=== PATIENT | male | born 1950 ===

== ENCOUNTER → 2021-03-10 | Outpatient (CLI) | payer MEDICARE, BC ==
[2021-03-10 15:57] LABS: HGB 14.8 g/dL (13.0-17.0); MCH 30.3 pg (27.0-32.0); MCHC 32.2 g/dL (32.0-37.0); MCV 94.1 fL (80.0-97.0); Mean Platelet Volume 10.4 fL (9.5-12.2); Platelet Count 230 X 10*3/uL (140-440); RBC 4.89 X 10*6/uL (4.40-5.60); RDW 13.2 % (11.5-14.5); WBC 5.39 X 10*3/uL (4.50-10.00)
[2021-03-10 17:02] LABS: African American GFR (CKD) 77.3 (60.0-200.0); Albumin 4.9 g/dL (3.80-4.90); Albumin/Globulin Ratio 2.58 (1.60-3.17); Anion Gap 7.1 mmol/L (4.00-12.00); BUN/Creat Ratio 19.09 Ratio (12.00-20.00); Calcium 9.8 mg/dL (8.7-10.3); Carbon Dioxide 25.9 mmol/L (21.6-31.8); Chol/HDL Ratio 2.67; Globulin 1.9 g/dL (1.6-3.3); LDL Cholesterol,Calculated 53.8 mg/dL (0.0-131.0); Non-African American GFR(CKD) 66.7 (60.0-200.0); Potassium 5.4 mmol/L (3.5-5.5); Total Bilirubin 0.6 mg/dL (0.2-1.2); Total Protein 6.8 g/dL (6.2-8.2); VLDL Calculation 21.2 mg/dL (5.00-40.00)
== END | disposition home or self-care (01) ==
LOC: LABWHC1 10:18
PROVIDERS: ATTEND Internal Medicine Clinical Cardiac Electrophysiology
DX: I25.10 Atherosclerotic heart disease of native coronary artery without angina pectoris (principal); E78.5 Hyperlipidemia, unspecified; Z95.1 Presence of aortocoronary bypass graft
CPT/HCPCS: 36415; 80053; 80061; 84443; 85027

== ENCOUNTER 2025-03-22 14:13 | Inpatient (IN) | payer BC, MEDICARE ==
[2025-03-22] MEDS: SODIUM CHLORIDE 0.9% 500 ML 500 ML IV STA (15:15)
[2025-03-22] MEDS: SODIUM CHLORIDE 0.9% 1,000 ML IV STA (15:15)
--- NOTE | 2025-03-22 15:17 | ED ---
General Adult HPI - General Chief complaint: Arrhythmia/Palpitations Stated complaint: SOB, Afib Time Seen by Provider: 03/22/25 14:13 Source: patient, RN notes reviewed, old records reviewed Mode of arrival: ambulatory Limitations: no limitations - History of Present Illness Initial comments: This is a 74-year-old male who presents to the emergency department stating he has a history of atrial fibrillation. Patient came in today because he felt like his heart was racing again. Patient states he was at [facility] a couple of days ago and was discharged home but since then his heart rate has been back up to 120 beats to 130 beats bpm. Patient denies any chest pain. Patient does state he is somewhat dizzy and is mildly short of breath. Patient denies any recent fever chills or cough. Patient states he has been taking his medications at an increased dose per [facility]. Patient is on Eliquis. - Related Data Home Medications Medication Instructions Recorded Confirmed Apixaban [Eliquis] 5 mg PO HS@1930 03/22/25 03/22/25 Atorvastatin [Lipitor] 40 mg PO Q2D@1930 03/22/25 03/22/25 Atorvastatin [Lipitor] 80 mg PO Q2D@1930 03/22/25 03/22/25 Ezetimibe [Zetia] 10 mg PO DAILY 03/22/25 03/22/25 Lisinopril-Hctz 20-12.5 mg 1 tab PO DAILY 03/22/25 03/22/25 [Zestoretic 20-12.5] Metoprolol Tartrate [Lopressor] 100 mg PO BID 03/22/25 03/22/25 Sertraline [Zoloft] 50 mg PO HS@1930 03/22/25 03/22/25 Allergies Allergy/AdvReac Type Severity Reaction Status Date / Time No Known Allergies Allergy Verified 03/22/25 17:06 Review of Systems ROS Statement: Those systems with pertinent positive or pertinent negative responses have been documented in the HPI. ROS Other: All systems not noted in ROS Statement are negative. Past Medical History Past Medical History: Atrial Fibrillation, Coronary Artery Disease (CAD), Chest Pain / Angina, Hyperlipidemia, Hypertension, Myocardial Infarction (MD), Osteoarthritis (OA), Prostate Disorder Last Myocardial Infarction Date:: june 2012 History of Any Multi-Drug Resistant Organisms: None Reported Past Surgical History: Coronary Bypass/CABG, Heart Catheterization, Heart Catheterization With Stent, Hernia Repair Past Anesthesia/Blood Transfusion Reactions: No Reported Reaction Date of Last Stent Placement:: june 2012 Past Psychological History: Anxiety Past Alcohol Use History: Occasional Past Drug Use History: None Reported - Past Family History Father Family Medical History: Cancer General Exam - General Exam Comments Initial Comments: GENERAL: Patient is well-developed and well-nourished. Patient is nontoxic and well- hydrated and is in mild distress. ENT: Neck is soft and supple. No significant lymphadenopathy is noted. Oropharynx is clear. Moist mucous membranes. Neck has full range of motion without eliciting any pain. EYES: The sclera were anicteric and conjunctiva were pink and moist. Extraocular movements were intact and pupils were equal round and reactive to light. Eyelids were unremarkable. PULMONARY: Unlabored respirations. Good breath sounds bilaterally. No audible rales rhonchi or wheezing was noted. CARDIOVASCULAR: Patient has an irregular heartbeat at 120 bpm ABDOMEN: Soft and nontender with normal bowel sounds. No palpable organomegaly was noted. There is no palpable pulsatile mass. SKIN: Skin is clear with no lesions or rashes and otherwise unremarkable. NEUROLOGIC: Patient is alert and oriented x3. Cranial nerves II through XII are grossly intact. Motor and sensory are also intact. Normal speech, volume and content. Symmetrical smile. MUSCULOSKELETAL: Normal extremities with adequate strength and full range of motion. No lower extremity swelling or edema. No calf tenderness. LYMPHATICS: No significant lymphadenopathy is noted PSYCHIATRIC: Normal psychiatric evaluation. Limitations: no limitations Course Vital Signs 03/22/25 03/22/25 03/22/25 14:19 15:13 16:25 Temperature 98.2 F Pulse Rate 124 H 121 H 125 H Respiratory 18 18 18 Rate Blood Pressure 110/75 105/67 116/87 O2 Sat by Pulse 100 95 96 Oximetry 03/22/25 03/22/25 16:43 17:38 Temperature Pulse Rate 125 H 108 H Respiratory 18 Rate Blood Pressure 113/77 O2 Sat by Pulse 95 Oximetry Medical Decision Making - Medical Decision Making EKG is interpreted by myself. EKG shows atrial fibrillation with rapid ventricular response at 120 bpm QRS 121 QT interval 344 QTc is 4-15. Patient's EKG shows no ST segment elevation or depression. Was pt. sent in by a medical professional or institution (Dr., PA, B[employer]SEMBLER, urgent care, hospital, or alf...) When possible be specific @ -[No] Did you speak to anyone other than the patient for history (EMS, parent, family, police, friend...)? What history was obtained from this source @ -[No] Did you review nursing and triage notes (agree or disagree)? Why? @ -[I reviewed and agree with nursing and triage notes] Were old charts reviewed (outside hosp., previous admission, EMS record, old E KG, old radiological studies, urgent care reports/EKG's, alf records)? Report findings @ -[No old charts were reviewed] Differential Diagnosis? @ -Differential Palpitations Ventricular arrhythmias, atrial arrhythmias, myocardial infarction, anemia, thyrotoxicosis, electrolyte imbalance, hypokalemia, pulmonary embolism, pulmonary disease, drugs, alcohol, anxiety, stress.... This is not meant to be an all-inclusive list. EKG interpreted by me (3pts min.). @ -[As above] X-rays interpreted by me (1pt min.). @ -Chest x-ray shows no acute abnormality CT interpreted by me (1pt min.). @ -[None done] U/S interpreted by me (1pt. min.). @ -[None done] What testing was considered but not performed or refused? (CT, X-rays, U/S, labs)? Why? @ -[None] What meds were considered but not given or refused? Why? @ -[None] Did you discuss the management of the patient with other professionals (pr ofessionals i.e. YUAN [place], B[employer]SEMBLER, lab, RT, psych nurse, clinical social worker, flatbed company driver, teacher, chief merchandising officer, comp field case manager)? Give summary @ -I spoke with Mary Imogene Bassett Hospitalist they agreed to admit the patient admitted the patient and wrote admitting orders Was smoking cessation discussed for >3mins.? @ -[No] Was critical care preformed (if so, how long)? @ -35 minutes Were there social determinants of health that impacted care today? How? (Homelessness, low income, unemployed, alcoholism, drug addiction, transportation, low edu. Level, literacy, decrease access to med. care, [facility], rehab)? @ -[No] Was there de-escalation of care discussed even if they declined (Discuss DNR or withdrawal of care, Hospice)? DNR status @ -[No] What co-morbidities impacted this encounter? (DM, HTN, Smoking, COPD, CAD, Cancer, CVA, ARF, Chemo, Hep., AIDS, mental health diagnosis, sleep apnea, morbid obesity)? @ -[None] Was patient admitted / discharged? Hospital course, mention meds given and route, prescriptions, significant lab abnormalities, going to OR and other pertinent info. @ -Patient was having heart rate up to the 130 beats a minute it was irregular and patient was in A-fib at this time so I started the patient on Cardizem patient received a bolus and then drip and it slowed the heart rate down to about 105 bpm prior to his admission. I spoke with the stomach and hospitalist agreed to admit the patient admit the patient I wrote a bitting orders and I consulted cardiology Undiagnosed new problem with uncertain prognosis? @ -[No] Drug Therapy requiring intensive monitoring for toxicity (Heparin, Nitro, Insulin, Cardizem)? @ -[No] Were any procedures done? @ -[No] Diagnosis/symptom? @ -A-fib with rapid ventricular response Acute, or Chronic, or Acute on Chronic? @ -Acute Uncomplicated (without systemic symptoms) or Complicated (systemic symptoms)? @ -[default] Side effects of treatment? @ -[No] Exacerbation, Progression, or Severe Exacerbation? @ -[No] Poses a threat to life or bodily function? How? (Chest pain, USA, MD, pneumonia, PE, COPD, DKA, ARF, appy, cholecystitis, CVA, Diverticulitis, Homicidal, Suicidal, threat to staff... and all critical care pts) @ -Yes this can lead to poor perfusion and endorgan dysfunction - Lab Data Result diagrams: 03/22/25 15:13 03/22/25 15:13 Lab Results 03/22/25 03/22/25 03/22/25 Range/Units 15:13 15:13 15:13 WBC 5.70 (4.50-10.00) 10*3/uL RBC 3.80 L (4.40-5.60) 10*6/uL Hgb 12.1 L (13.0-17.0) g/dL Hct 34.2 L (39.6-50.0) % MCV 90.0 (80.0-97.0) fL MCH 31.8 (27.0-32.0) pg MCHC 35.4 (32.0-37.0) g/dL Plt Count 207 (140-440) 10*3/uL MPV 9.7 (9.5-12.2) fL Immature Gran % (Auto) 0.2 % Neutrophils % 70.1 % Lymphocytes % 14.6 % Monocytes % 9.8 % Eosinophils % 4.4 % Basophils % 0.9 % Immature Gran # 0.01 (0.00-0.04) 10*3/uL Neutrophils # 4.00 (1.80-7.70) 10*3/uL Lymphocytes # 0.83 L (0.90-5.00) 10*3/uL Monocytes # 0.56 (0.20-1.00) 10*3/uL Eosinophils # 0.25 (0.04-0.35) 10*3/uL Basophils # 0.05 (0.00-0.10) 10*3/uL PT (10.0-12.5) sec INR (<1.2) APTT (22.0-30.0) sec Sodium 137 (137-145) mmol/L Potassium 3.4 L (3.5-5.1) mmol/L Chloride 101 (98-107) mmol/L Carbon Dioxide 28 (22-30) mmol/L Anion Gap 8 mmol/L BUN 18 (9-20) mg/dL Creatinine 0.92 (0.66-1.25) mg/dL Est GFR (CKD-EPI)AfAm >90 (>60 ml/min/1.73 sqM) Est GFR (CKD-EPI)NonAf 81 (>60 ml/min/1.73 sqM) Glucose 124 H (74-99) mg/dL Calcium 9.2 (8.4-10.2) mg/dL Magnesium 1.7 (1.6-2.3) mg/dL Total Bilirubin 0.6 (0.2-1.3) mg/dL AST 22 (17-59) U/L ALT 24 (4-49) U/L Alkaline Phosphatase 83 (38-126) U/L Troponin I <0.012 (0.000-0.034) ng/mL Total Protein 5.8 L (6.3-8.2) g/dL Albumin 3.8 (3.5-5.0) g/dL TSH 1.900 (0.465-4.680) mIU/L 03/22/25 Range/Units 15:50 WBC (4.50-10.00) 10*3/uL RBC (4.40-5.60) 10*6/uL Hgb (13.0-17.0) g/dL Hct (39.6-50.0) % MCV (80.0-97.0) fL MCH (27.0-32.0) pg MCHC (32.0-37.0) g/dL Plt Count (140-440) 10*3/uL MPV (9.5-12.2) fL Immature Gran % (Auto) % Neutrophils % % Lymphocytes % % Monocytes % % Eosinophils % % Basophils % % Immature Gran # (0.00-0.04) 10*3/uL Neutrophils # (1.80-7.70) 10*3/uL Lymphocytes # (0.90-5.00) 10*3/uL Monocytes # (0.20-1.00) 10*3/uL Eosinophils # (0.04-0.35) 10*3/uL Basophils # (0.00-0.10) 10*3/uL PT 11.0 (10.0-12.5) sec INR 1.0 (<1.2) APTT 23.4 (22.0-30.0) sec Sodium (137-145) mmol/L Potassium (3.5-5.1) mmol/L Chloride (98-107) mmol/L Carbon Dioxide (22-30) mmol/L Anion Gap mmol/L BUN (9-20) mg/dL Creatinine (0.66-1.25) mg/dL Est GFR (CKD-EPI)AfAm (>60 ml/min/1.73 sqM) Est GFR (CKD-EPI)NonAf (>60 ml/min/1.73 sqM) Glucose (74-99) mg/dL Calcium (8.4-10.2) mg/dL Magnesium (1.6-2.3) mg/dL Total Bilirubin (0.2-1.3) mg/dL AST (17-59) U/L ALT (4-49) U/L Alkaline Phosphatase (38-126) U/L Troponin I (0.000-0.034) ng/mL Total Protein (6.3-8.2) g/dL Albumin (3.5-5.0) g/dL TSH (0.465-4.680) mIU/L Disposition Clinical Impression: Atrial flutter with rapid ventricular response Disposition: ADMITTED IP TO THIS HOSP Referrals: Karlo Merlos MD [Primary Care Provider] - 1-2 days Time of Disposition: 17:54
[2025-03-22 15:18] LABS: Basophils # (A) 0.05 10*3/uL (0.00-0.10); Basophils % (A) 0.9 %; Eosinophils # (A) 0.25 10*3/uL (0.04-0.35); Eosinophils % (A) 4.4 %; HCT 34.2 % (39.6-50.0); HGB 12.1 g/dL (13.0-17.0); Lymphocytes # (A) 0.83 10*3/uL (0.90-5.00); Lymphocytes % (A) 14.6 %; MCH 31.8 pg (27.0-32.0); MCHC 35.4 g/dL (32.0-37.0); MCV 90.0 fL (80.0-97.0); Monocytes # (A) 0.56 10*3/uL (0.20-1.00); Monocytes % (A) 9.8 %; Neutrophils # (A) 4.00 10*3/uL (1.80-7.70); Neutrophils % (A) 70.1 %; Platelet Count 207 10*3/uL (140-440); RBC 3.80 10*6/uL (4.40-5.60); RDW 13.3 % (11.5-14.5); WBC 5.70 10*3/uL (4.50-10.00)
--- NOTE | 2025-03-22 15:31 | XR ---
EXAMINATION TYPE: XR chest 2V DATE OF EXAM: 03/22/2025 3:27 PM COMPARISON: 04/18/2015 CLINICAL INDICATION: Male, 74 years old with history of dysrhythmia, , TECHNIQUE: AP and lateral views FINDINGS: Heart mildly enlarged. Median sternotomy wires with post-CABG clips. Hazy lung densities relating to overlying soft tissue. No consolidation or pleural effusion. IMPRESSION: Mild cardiomegaly. Post-CABG changes. No definite acute process. [facility], Workstation: [email or web address], 03/22/2025 3:29 PM
[2025-03-22 15:34] LABS: ALT 24 U/L (4-49); AST 22 U/L (17-59); African American GFR (CKD) >90 (>60 ml/min/1.73 sqM); Albumin 3.8 g/dL (3.5-5.0); Alkaline Phosphatase 83 U/L (38-126); Anion Gap 8 mmol/L; Blood Urea Nitrogen 18 mg/dL (9-20); Calcium 9.2 mg/dL (8.4-10.2); Carbon Dioxide 28 mmol/L (22-30); Chloride 101 mmol/L (98-107); Glucose 124 mg/dL (74-99); Magnesium 1.7 mg/dL (1.6-2.3); Non-African American GFR(CKD) 81 (>60 ml/min/1.73 sqM); Potassium 3.4 mmol/L (3.5-5.1); Sodium 137 mmol/L (137-145); Total Protein 5.8 g/dL (6.3-8.2)
[2025-03-22 16:09] LABS: INR 1.0 (<1.2); Partial Thromboplastin Time 23.4 sec (22.0-30.0); Prothrombin Time 11.0 sec (10.0-12.5)
[2025-03-22] MEDS: DILTIAZEM 5 MG/ML 5 ML VIAL IVP STA (16:44)
[2025-03-22] MEDS: DILTIAZEM 125 MG in DEXTROSE 5% IN WATER 100 ML IV SCH (16:50)
[2025-03-22] MEDS ORDERED: NITROGLYCERIN SL TABS 0.4 MG TAB SUBLINGUAL PRN (17:54)
[2025-03-22] MEDS: NITROGLYCERIN OINT 1 INCH/GM PACKET TOPICAL SCH (18:59)
[2025-03-22] MEDS: POTASSIUM CHLORIDE ER 20 MEQ TAB.ER PO STA (22:57)
[2025-03-22] MEDS: METOPROLOL TARTRATE 12.5 MG TAB PO SCH (22:57)
[2025-03-22] MEDS: APIXABAN 5 MG TAB PO SCH (22:57)
[2025-03-22] MEDS: SERTRALINE 50 MG TAB PO SCH (22:57)
[2025-03-23 07:40] LABS: Anion Gap 4 mmol/L; Blood Urea Nitrogen 16 mg/dL (9-20); Carbon Dioxide 30 mmol/L (22-30); Chloride 106 mmol/L (98-107); Glucose 123 mg/dL (74-99); Potassium 4.6 mmol/L (3.5-5.1); Sodium 140 mmol/L (137-145)
[2025-03-23 07:41] LABS: African American GFR (CKD) >90 (>60 ml/min/1.73 sqM); Calcium 9.0 mg/dL (8.4-10.2); Non-African American GFR(CKD) 84 (>60 ml/min/1.73 sqM)
[2025-03-23] MEDS: EZETIMIBE 10 MG TAB PO SCH (08:34)
[2025-03-23] MEDS: ASPIRIN 325 MG TAB PO SCH (08:35)
[2025-03-23] MEDS: METOPROLOL TARTRATE 25 MG TAB PO SCH (09:06)
[2025-03-23] MEDS: AMIODARONE 200 MG TAB PO SCH (09:09)
--- NOTE | 2025-03-23 11:17 | P.CRDCN ---
History of Present Illness History of present illness: HISTORY OF PRESENT ILLNESS: This is a 74-year-old male with a past medical history significant for atrial fibrillation, CAD with previous CABG and redo CABG with most recent in 2013 x 5 vessels, prostate cancer, hypertension, hyperlipidemia and obesity. Patient follows in the office with Dr. Lui. We have been asked to see the patient in consultation for atrial fibrillation. Patient examined at the bedside. Patient states that he has been having issues with his a-fib acting up for the past 2 months. He states that he was taking hormones and steroids and was concerned that was exacerbating his atrial fibrillation. He does report feeling short of breath. He also reports having some dizziness and palpitations. Patient was found to be in A-fib with RVR. He was started on IV Cardizem which is infusing at 5 mg an hour. He remains in atrial fibrillation with a heart rate around 120 at the time of examination. DIAGNOSTICS: - EKG reveals A-fib with RVR. - Chest xray mild cardiomegaly. Post CABG changes. No definite acute process.. - Laboratory data: Troponin negative x 3. TSH 1.980 - Current home cardiac medications include Zetia 10 mg daily, Lipitor 80 mg and 40 mg every 2 days alternating, lisinoprilhydrochlorothiazide 20-12.5 mg daily, Eliquis 5 mg at night, metoprolol tartrate 100 mg twice daily. - Most recent echocardiogram obtained in May 2023 revealed ejection fraction 50 to 55%, borderline LVH, RVSP 35 mmHg - Patient underwent Lexiscan stress test in April 2021 revealing fixed defect inferior wall probably due to soft tissue attenuation. REVIEW OF SYSTEMS: At the time of my exam: CONSTITUTIONAL: Denies fever or chills. HEENT: Denies blurred vision, vision changes, or eye pain. Denies hemoptysis CARDIOVASCULAR: Denies chest pain. Denies orthopnea. Denies PND. Denies palpitations RESPIRATORY: Denies shortness of breath. GASTROINTESTINAL: Denies abdominal pain. Denies nausea or vomiting. HEMATOLOGIC: Denies bleeding disorders. GENITOURINARY: Denies any blood in urine. SKIN: Denies pruitis. Denies rash. PHYSICAL EXAM: VITAL SIGNS: Reviewed. GENERAL: Well-developed in no acute distress. HEENT: Head is normocephalic. Pupils are equal, round. Sclerae anicteric. Mucous membranes of the mouth are moist. Neck supple. No JVD or thyromegaly LUNGS: Respirations even and unlabored. Lungs essentially clear to auscultation bilaterally. HEART: Irregular rate and rhythm. S1 and S2 heard. ABDOMEN: Soft. Nondistended. Nontender. EXTREMITIES: Normal range of motion. No clubbing or cyanosis. Peripheral pulses intact. No lower extremity edema NEUROLOGIC: Awake and alert. Oriented x 3. ASSESSMENT: Paroxysmal atrial fibrillation CAD with previous CABG x 2 with most recent in 2014 x 5 vessels Hypertension Hyperlipidemia Prostate cancer Obesity: BMI 31.9 PLAN: Obtain 2D echo to assess cardiac structure and function Increase Eliquis to 5 mg twice a day for optimal thromboembolic protection. Patient only taking once a day at home according to medication list. Increase metoprolol tartrate to 25 mg twice a day Add amiodarone 400 mg twice a day Wean off Cardizem drip as heart rate will tolerate Hold lisinoprilhydrochlorothiazide secondary to soft blood pressures this morning Continue telemetry monitoring Further recommendations pending patient course Nurse practitioner note has been reviewed by physician. Signing provider agrees with the documented findings, assessment, and plan of care documented by [employer] as a scribe. Past Medical History Past Medical History: Atrial Fibrillation, Coronary Artery Disease (CAD), Chest Pain / Angina, Hyperlipidemia, Hypertension, Myocardial Infarction ([place]), Osteoarthritis (OA), Prostate Disorder Last Myocardial Infarction Date:: june 2012 History of Any Multi-Drug Resistant Organisms: None Reported Past Surgical History: Coronary Bypass/CABG, Heart Catheterization, Heart Catheterization With Stent, Hernia Repair Past Anesthesia/Blood Transfusion Reactions: No Reported Reaction Date of Last Stent Placement:: june 2012 Past Psychological History: Anxiety Smoking Status: Never smoker Past Alcohol Use History: Occasional Past Drug Use History: None Reported - Past Family History Father Family Medical History: Cancer Medications and Allergies Home Medications Medication Instructions Recorded Confirmed Type Apixaban [Eliquis] 5 mg PO HS@192903/22/25 03/22/25 History Atorvastatin [Lipitor] 40 mg PO Q2D@192903/22/25 03/22/25 History Atorvastatin [Lipitor] 80 mg PO Q2D@192903/22/25 03/22/25 History Ezetimibe [Zetia] 10 mg PO DAILY 03/22/25 03/22/25 History Lisinopril-Hctz 20-12.5 mg 1 tab PO DAILY 03/22/25 03/22/25 History [Zestoretic 20-12.5] Metoprolol Tartrate [Lopressor] 100 mg PO BID 03/22/25 03/22/25 History Sertraline [Zoloft] 50 mg PO HS@1930 03/22/25 03/22/25 History Allergies Allergy/AdvReac Type Severity Reaction Status Date / Time No Known Allergies Allergy Verified 03/22/25 17:06 Physical Exam Vitals: Vital Signs Temp Pulse Pulse Resp BP BP Pulse Ox 03/23/25 08:32 97.7 F 96 16 124/83 94 L 03/23/25 04:00 98.4 F 81 16 95/69 95 03/23/25 02:55 64 93/54 03/23/25 01:55 77 93/54 03/23/25 01:42 70 03/23/25 01:15 77 93/54 03/23/25 00:48 120 H 94/55 03/22/25 23:21 98.3 F 126 H 16 106/68 93 L 03/22/25 21:30 98.1 F 122 H 18 123/76 93 L 03/22/25 20:49 100 18 109/75 03/22/25 20:00 98 120 H 18 76/60 95 03/22/25 19:00 108 H 18 103/82 03/22/25 18:43 126 H 03/22/25 18:38 97.6 F 98 18 109/73 94 L 03/22/25 17:38 108 H 18 113/77 95 03/22/25 16:43 125 H 03/22/25 16:25 125 H 18 116/87 96 03/22/25 15:13 121 H 18 105/67 95 03/22/25 14:19 98.2 F 124 H 18 110/75 100 Intake and Output 03/22/25 03/23/25 03/23/25 22:59 06:59 14:59 Intake Total 70.500 21.167 Balance 70.500 21.167 Intake: Intake, IV Titration 70.500 21.167 Amount Diltiazem 125 mg In 70.500 21.167 Dextrose 5% in Water 100 ml @ 5 MG/HR 5 mls/hr IV .Q24H [facility] Rx#:[id number] Other: Voiding Method Toilet Toilet # Voids 2 Weight 97.522 kg 98 kg Results 03/22/25 15:13 03/23/25 05:50 Cardiac Enzymes 03/22/25 03/22/25 03/22/25 Range/Units 15:13 15:13 18:38 AST 22 (17-59) U/L Troponin I <0.012 <0.012 (0.000-0.034) ng/mL 03/22/25 Range/Units 20:44 AST (17-59) U/L Troponin I <0.012 (0.000-0.034) ng/mL Coagulation 03/22/25 Range/Units 15:50 PT 11.0 (10.0-12.5) sec APTT 23.4 (22.0-30.0) sec CBC 03/22/25 Range/Units 15:13 WBC 5.70 (4.50-10.00) 10*3/uL RBC 3.80 L (4.40-5.60) 10*6/uL Hgb 12.1 L (13.0-17.0) g/dL Hct 34.2 L (39.6-50.0) % Plt Count 207 (140-440) 10*3/uL Comprehensive Metabolic Panel 03/22/25 03/23/25 Range/Units 15:13 05:50 Sodium 137 140 (137-145) mmol/L Potassium 3.4 L 4.6 (3.5-5.1) mmol/L Chloride 101 106 (98-107) mmol/L Carbon Dioxide 28 30 (22-30) mmol/L BUN 18 16 (9-20) mg/dL Creatinine 0.92 0.86 (0.66-1.25) mg/dL Glucose 124 H 123 H (74-99) mg/dL Calcium 9.2 9.0 (8.4-10.2) mg/dL AST 22 (17-59) U/L ALT 24 (4-49) U/L Alkaline Phosphatase 83 (38-126) U/L Total Protein 5.8 L (6.3-8.2) g/dL Albumin 3.8 (3.5-5.0) g/dL Current Medications Generic Name Dose Route Start Last Admin Trade Name Freq PRN Reason Stop Dose Admin Amiodarone HCl 400 mg 03/23/25 09:00 03/23/25 09:09 Amiodarone 200 Mg Tab PO 400 mg BID [facility] Administration Apixaban 5 mg 03/22/25 22:15 03/23/25 08:35 Apixaban 5 Mg Tab PO 5 mg BID [facility] Administration Protocol Atorvastatin Calcium 40 mg 03/24/25 19:30 Atorvastatin 40 Mg Tab PO Q2D@1930 [facility] Atorvastatin Calcium 80 mg 03/25/25 19:30 Atorvastatin 80 Mg Tab PO Q2D@1930 [facility] Ezetimibe 10 mg 03/23/25 09:00 03/23/25 08:34 Ezetimibe 10 Mg Tab PO 10 mg DAILY [facility] Administration Diltiazem HCl 125 mg/ Dextrose 125 mls @ 5 mls/hr 03/22/25 16:30 03/23/25 10:16 /Water IV 5 mg/hr .Q24H [facility] 5 mls/hr Administration Protocol 5 MG/HR Metoprolol Tartrate 25 mg 03/23/25 09:00 03/23/25 09:06 Metoprolol Tartrate 25 Mg Tab PO 25 mg BID [facility] Administration Nitroglycerin 0.4 mg 03/22/25 17:54 Nitroglycerin Sl Tabs 0.4 Mg Tab SUBLINGUAL Q5M PRN Chest Pain Sertraline HCl 50 mg 03/22/25 22:23 03/22/25 22:57 Sertraline 50 Mg Tab PO 50 mg HS@1930 [facility] Administration Intake and Output 03/22/25 03/23/25 03/23/25 22:59 06:59 14:59 Intake Total 70.500 21.167 Balance 70.500 21.167 Intake: Intake, IV Titration 70.500 21.167 Amount Diltiazem 125 mg In 70.500 21.167 Dextrose 5% in Water 100 ml @ 5 MG/HR 5 mls/hr IV .Q24H [facility] Rx#:[id number] Other: Voiding Method Toilet Toilet # Voids 2 Weight 97.522 kg 98 kg 03/22/25 15:13 03/23/25 05:50
--- NOTE | 2025-03-23 12:08 | CA ---
Transthoracic Echo Report Name: Altaf Diggs Age: 74 Gender: M : 1950 Exam Date: 03/23/2025 10:04 Exam Location: [facility] Ht (in): 69 Wt (lb): 216 Ordering Physician: Marilin Randhawa Attending/Referring Phys: [id number], Edis It Trainee Janelle Kelly, ANGELO Procedure CPT: Indications: afib, hx of CAD with CABG Cardiac Hx: Technical Quality: Fair, Poor Contrast 1: Total Dose (mL): Contrast 2: Total Dose (mL): MEASUREMENTS (Male / Female) Normal Values 2D ECHO LV Diastolic Diameter PLAX 4.3 cm 4.2 - 5.9 / 3.9 - 5.3 cm LV Systolic Diameter PLAX 3.4 cm IVS Diastolic Thickness 1.2 cm 0.6 - 1.0 / 0.6 - 0.9 cm LVPW Diastolic Thickness 1.4 cm 0.6 - 1.0 / 0.6 - 0.9 cm LV Relative Wall Thickness 0.6 RV Internal Dim ED PLAX 2.4 cm LA Systolic Diameter LX 4.7 cm 3.0 - 4.0 / 2.7 - 3.8 cm LA Volume 91.4 cm??? 18 - 58 / 22 - 52 cm??? LA Volume Index 41.3 cm???/m??? 16 - 28 cm???/m??? M-MODE Aortic Root Diameter MM 3.8 cm LA Systolic Diameter MM 4.4 cm LA Ao Ratio MM 1.2 AV Cusp Separation MM 1.5 cm DOPPLER AV Peak Velocity 164.9 cm/s AV Peak Gradient 10.9 mmHg AV Mean Velocity 121.7 cm/s AV Mean Gradient 6.4 mmHg AV Velocity Time Integral 32.9 cm LVOT Peak Velocity 93.0 cm/s LVOT Peak Gradient 3.5 mmHg LVOT Velocity Time Integral 17.5 cm MV Area PHT 3.2 cm??? Mitral E Point Velocity 124.8 cm/s Mitral A Point Velocity 0.3 cm/s Mitral E to A Ratio 489.0 MV Deceleration Time 236.4 ms TR Peak Velocity 238.3 cm/s TR Peak Gradient 22.7 mmHg FINDINGS Left Ventricle Left ventricular ejection fraction is estimated at 55-60 %. Normal left ventricular systolic function with no obvious regional wall motion abnormalities. Mildly increased left ventricular wall thickness. Right Ventricle Right ventricle not well visualized. Right ventricular systolic pressure within normal limits. Right Atrium Severe right atrial dilatation. Left Atrium Severely increased left atrial volume. Mitral Valve Structurally normal mitral valve. Mild mitral regurgitation. No mitral stenosis. Aortic Valve Trileaflet aortic valve. No aortic regurgitation. Diffuse thickening (sclerosis) of the aortic valve cusps without reduced excursion. Tricuspid Valve Structurally normal tricuspid valve. Mild tricuspid regurgitation. No tricuspid stenosis. Pulmonic Valve Structurally normal pulmonic valve. Trace pulmonic regurgitation. No pulmonic stenosis. Pericardium No pericardial or pleural effusion. Aorta Mild aortic dilatation at the level of the sinuses of valsalva (root). CONCLUSIONS 1. Normal left ventricular size and systolic function 2. Mild mitral and tricuspid regurgitation with no evidence of pulmonary hypertension Definity ECHO contrast used for improved visualization of the endocardial borders (inadequate visualization of two or more contiguous segments). Previewed by: Dr. Jimi Herrera MD (Electronically Signed) Final Date: 23 March 2025 12:07
[2025-03-23 13:37] LABS: Cholesterol 87.00 mg/dL (0.00-200.00); HDL Cholesterol 37.20 mg/dL (40.00-60.00); LDL Cholesterol,Calculated 34.3 mg/dL (0.0-131.0); Triglycerides 77.70 mg/dL (0.00-149.00); VLDL Calculation 15.54 mg/dL (5.00-40.00)
--- NOTE | 2025-03-23 15:51 | P.HPIM ---
History of Present Illness H&P Date: 03/23/25 Chief Complaint: Palpitations 74-year-old male, history of hypertension, hyperlipidemia, CAD, atrial fibrillation, osteoarthritis, who presents to the emergency department stating he has a history of atrial fibrillation. Patient came in today because he felt like his heart was racing again. Patient states he was at [facility] a couple of days ago and was discharged home but since then his heart rate has been back up to 120 beats to 130 beats bpm. Patient denies any chest pain. Patient does state he is somewhat dizzy and is mildly short of breath. Patient denies any recent fever chills or cough. Patient states he has been taking his medications at an increased dose per [facility]. Patient is on Eliquis. Review of Systems REVIEW OF SYSTEMS: CONSTITUTIONAL: No fever, no malaise, no fatigue. HEENT: No recent visual problems or hearing problems. Denied any sore throat. CARDIOVASCULAR: No chest pain, orthopnea, PND, no palpitations, no syncope. PULMONARY: No shortness of breath, no cough, no hemoptysis. GASTROINTESTINAL: No diarrhea, no nausea, no vomiting, no abdominal pain. NEUROLOGICAL: No headaches, no weakness, no numbness. HEMATOLOGICAL: Denies any bleeding or petechiae. GENITOURINARY: Denies any burning micturition, frequency, or urgency. MUSCULOSKELETAL/RHEUMATOLOGICAL: Denies any joint pain, swelling, or any muscle pain. ENDOCRINE: Denies any polyuria or polydipsia. The rest of the 14-point review of systems is negative. Past Medical History Past Medical History: Atrial Fibrillation, Coronary Artery Disease (CAD), Chest Pain / Angina, Hyperlipidemia, Hypertension, Myocardial Infarction (AR), Osteoarthritis (OA), Prostate Disorder Last Myocardial Infarction Date:: june 2012 History of Any Multi-Drug Resistant Organisms: None Reported Past Surgical History: Coronary Bypass/CABG, Heart Catheterization, Heart Catheterization With Stent, Hernia Repair Past Anesthesia/Blood Transfusion Reactions: No Reported Reaction Date of Last Stent Placement:: june 2012 Past Psychological History: Anxiety Smoking Status: Never smoker Past Alcohol Use History: Occasional Past Drug Use History: None Reported - Past Family History Father Family Medical History: Cancer Medications and Allergies Home Medications Medication Instructions Recorded Confirmed Type Apixaban [Eliquis] 5 mg PO HS@1930 03/22/25 03/22/25 History Atorvastatin [Lipitor] 40 mg PO Q2D@192903/22/25 03/22/25 History Atorvastatin [Lipitor] 80 mg PO Q2D@192903/22/25 03/22/25 History Ezetimibe [Zetia] 10 mg PO DAILY 03/22/25 03/22/25 History Lisinopril-Hctz 20-12.5 mg 1 tab PO DAILY 03/22/25 03/22/25 History [Zestoretic 20-12.5] Metoprolol Tartrate [Lopressor] 100 mg PO BID 03/22/25 03/22/25 History Sertraline [Zoloft] 50 mg PO HS@192903/22/25 03/22/25 History Allergies Allergy/AdvReac Type Severity Reaction Status Date / Time No Known Allergies Allergy Verified 03/22/25 17:06 Physical Exam Vitals: Vital Signs Temp Pulse Pulse Resp BP BP Pulse Ox 03/23/25 08:32 97.7 F 96 16 124/83 94 L 03/23/25 04:00 98.4 F 81 16 95/69 95 03/23/25 02:55 64 93/54 03/23/25 01:55 77 93/54 03/23/25 01:42 70 03/23/25 01:15 77 93/54 03/23/25 00:48 120 H 94/55 03/22/25 23:21 98.3 F 126 H 16 106/68 93 L 03/22/25 21:30 98.1 F 122 H 18 123/76 93 L 03/22/25 20:49 100 18 109/75 03/22/25 20:00 98 120 H 18 76/60 95 03/22/25 19:00 108 H 18 103/82 03/22/25 18:43 126 H 03/22/25 18:38 97.6 F 98 18 109/73 94 L 03/22/25 17:38 108 H 18 113/77 95 03/22/25 16:43 125 H 03/22/25 16:25 125 H 18 116/87 96 03/22/25 15:13 121 H 18 105/67 95 03/22/25 14:19 98.2 F 124 H 18 110/75 100 Intake and Output 03/22/25 03/23/25 03/23/25 22:59 06:59 14:59 Intake Total 70.500 21.167 Balance 70.500 21.167 Intake: Intake, IV Titration 70.500 21.167 Amount Diltiazem 125 mg In 70.500 21.167 Dextrose 5% in Water 100 ml @ 5 MG/HR 5 mls/hr IV .Q24H [facility] Rx#:[id number] Other: Voiding Method Toilet Toilet # Voids 2 Weight 97.522 kg 98 kg GENERAL:Patient is well-developed and well-nourished. Patient is nontoxic and well-hydrated and is in mild distress. ENT:Neck is soft and supple. No significant lymphadenopathy is noted. Oropharynx is clear. Moist mucous membranes. Neck has full range of motion without eliciting any pain. EYES:The sclera were anicteric and conjunctiva were pink and moist. Extraocular movements were intact and pupils were equal round and reactive to light. Eyelids were unremarkable. PULMONARY:Unlabored respirations. Good breath sounds bilaterally. No audible rales rhonchi or wheezing was noted. CARDIOVASCULAR:Patient has an irregular heartbeat at 120 bpm ABDOMEN:Soft and nontender with normal bowel sounds. No palpable organomegaly was noted. There is no palpable pulsatile mass. SKIN:Skin is clear with no lesions or rashes and otherwise unremarkable. NEUROLOGIC:Patient is alert and oriented x3. Cranial nerves II through XII are grossly intact. Motor and sensory are also intact. Normal speech, volume and content. Symmetrical smile. MUSCULOSKELETAL:Normal extremities with adequate strength and full range of motion. No lower extremity swelling or edema. No calf tenderness. LYMPHATICS:No significant lymphadenopathy is noted PSYCHIATRIC:Normal psychiatric evaluation. Results CBC & Chem 7: 03/22/25 15:13 03/23/25 05:50 Labs: Abnormal Lab Results - Last 24 Hours (Table) 03/22/25 03/22/25 03/23/25 Range/Units 15:13 15:13 05:50 RBC 3.80 L (4.40-5.60) 10*6/uL Hgb 12.1 L (13.0-17.0) g/dL Hct 34.2 L (39.6-50.0) % Lymphocytes # 0.83 L (0.90-5.00) 10*3/uL Potassium 3.4 L (3.5-5.1) mmol/L Glucose 124 H 123 H (74-99) mg/dL Total Protein 5.8 L (6.3-8.2) g/dL Thrombosis Risk Factor Assmnt - Choose All That Apply Any of the Below Risk Factors Present?: No Each Risk Factor Represents 2 Points: Age 61-74 years Thrombosis Risk Factor Assessment Total Risk Factor Score: 2 Thrombosis Risk Factor Assessment Level: Low Risk Assessment and Plan Assessment: Paroxysmal atrial fibrillation with RVR; patient was placed on IV Cardizem infusion -Patient is currently on metoprolol tartrate 100 mg twice daily; Eliquis 5 mg daily -Patient has been evaluated by cardiology; recommending to increase Eliquis to 5 mg twice daily; given softer blood pressures patient has been placed on metoprolol 25 mg twice daily; add amiodarone 400 mg twice daily -2D echo is ordered -Cardiology on board; recommending to wean off Cardizem drip as able CAD with previous CABG x 2 with most recent in 2013 x 5 vessels -Remains on Eliquis, Lipitor, Zetia and metoprolol Hypertension; patient takes lisinoprilhydrochlorothiazide 25-12.5 mg daily which was not placed on hold given softer blood pressures -Metoprolol has been changed to 25 mg twice daily Hyperlipidemia; Lipitor 80 mg along with Zetia 10 mg daily Depression; Zoloft 50 mg nightly DVT prophylaxis; SCD/Eliquis CODE STATUS; full code
[2025-03-23] MEDS ORDERED: SERTRALINE 50 MG TAB PO SCH (19:30)
[2025-03-24] MEDS: METOPROLOL TARTRATE 25 MG TAB PO STA (09:59)
--- NOTE | 2025-03-24 11:02 | P.PN ---
Subjective HISTORY OF PRESENT ILLNESS: This is a 74-year-old male with a past medical history significant for atrial fibrillation, CAD with previous CABG and redo CABG with most recent in 2013 x 5 vessels, prostate cancer, hypertension, hyperlipidemia and obesity. Patient follows in the office with Dr. Lui. We have been asked to see the patient in consultation for atrial fibrillation. Patient examined at the bedside. Patient states that he has been having issues with his a-fib acting up for the past 2 months. He states that he was taking hormones and steroids and was concerned that was exacerbating his atrial fibrillation. He does report feeling short of breath. He also reports having some dizziness and palpitations. Patient was found to be in A-fib with RVR. He was started on IV Cardizem which is infusing at 5 mg an hour. He remains in atrial fibrillation with a heart rate around 120 at the time of examination. DIAGNOSTICS: - EKG reveals A-fib with RVR. - Chest xray mild cardiomegaly. Post CABG changes. No definite acute process.. - Laboratory data: Troponin negative x 3. TSH 1.980 - Current home cardiac medications include Zetia 10 mg daily, Lipitor 80 mg and 40 mg every 2 days alternating, lisinoprilhydrochlorothiazide 20-12.5 mg daily, Eliquis 5 mg at night, metoprolol tartrate 100 mg twice daily. - Most recent echocardiogram obtained in May 2023 revealed ejection fraction 50 to 55%, borderline LVH, RVSP 35 mmHg - Patient underwent Lexiscan stress test in April 2021 revealing fixed defect inferior wall probably due to soft tissue attenuation. 03/24/2025 Patient examined this morning at the bedside. Patient denies chest pain or pressure. He denies shortness of breath. He denies any palpitations. He remains in atrial fibrillation with a heart rate [place] [address]. Echocardiogram completed revealing ejection fraction 55 to 60%, mild MR, mild TR. PHYSICAL EXAM: VITAL SIGNS: Reviewed. GENERAL: Well-developed in no acute distress. HEENT: Head is normocephalic. Pupils are equal, round. Sclerae anicteric. Mucous membranes of the mouth are moist. Neck supple. No JVD or thyromegaly LUNGS: Respirations even and unlabored. Lungs essentially clear to auscultation bilaterally. HEART: Irregular rate and rhythm. S1 and S2 heard. ABDOMEN: Soft. Nondistended. Nontender. EXTREMITIES: Normal range of motion. No clubbing or cyanosis. Peripheral pulses intact. No lower extremity edema NEUROLOGIC: Awake and alert. Oriented x 3. ASSESSMENT: Paroxysmal atrial fibrillation CAD with previous CABG x 2 with most recent in 2014 x 5 vessels Hypertension Hyperlipidemia Prostate cancer Obesity: BMI 31.9 PLAN: Continue Eliquis 5 mg twice a day continue oral amiodarone 4 mg twice a day Increase metoprolol tartrate to 50 mg twice a day Continue oral amiodarone 400 mg twice a day Discontinue IV Cardizem Continue to hold lisinoprilhydrochlorothiazide secondary to soft blood pressures upon admission Continue telemetry monitoring Further recommendations pending patient course Nurse practitioner note has been reviewed by physician. Signing provider agrees with the documented findings, assessment, and plan of care documented by [employer] as a scribe. Objective - Vital Signs Vital signs: Vital Signs Temp 98.2 F 03/24/25 09:12 Pulse 107 H 03/24/25 09:12 Resp 16 03/24/25 09:12 BP 115/69 03/24/25 09:12 Pulse Ox 96 03/24/25 09:12 FiO2 Intake & Output 03/23/25 03/24/25 03/24/25 18:59 06:59 18:59 Intake Total 241.167 228.834 Balance 241.167 228.834 Weight 98 kg Intake: Intake, IV Titration 21.167 118.834 Amount Diltiazem 125 mg In 21.167 118.834 Dextrose 5% in Water 100 ml @ 5 MG/HR 5 mls/hr IV .Q24H [facility] Rx#:[id number] Oral 220 110 Other: Voiding Method Toilet Toilet Toilet # Voids 2 1 1 # Bowel Movements 1 - Labs CBC & Chem 7: 03/22/25 15:13 03/23/25 05:50 Labs: Abnormal Lab Results - Last 24 Hours (Table) 03/23/25 Range/Units 05:50 HDL Cholesterol 37.20 L (40.00-60.00) mg/dL
--- NOTE | 2025-03-24 14:33 | P.PN ---
Subjective Progress Note Date: 03/24/25 74-year-old male, history of hypertension, hyperlipidemia, CAD, atrial fibrillation, osteoarthritis, who presents to the emergency department stating he has a history of atrial fibrillation. Patient came in today because he felt like his heart was racing again. Patient states he was at [facility] a couple of days ago and was discharged home but since then his heart rate has been back up to 120 beats to 130 beats bpm. Patient denies any chest pain. Patient does state he is somewhat dizzy and is mildly short of breath. Patient denies any recent fever chills or cough. Patient states he has been taking his medications at an increased dose per [facility]. Patient is on Eliq uis. Patient has been taken off of IV Cardizem infusion; continue with metoprolol tartrate 50 mg twice daily, amiodarone 400 mg twice daily; lisinoprilhydrochlorothiazide remains on hold due to softer blood pressures - Possible discharge in next 24 hours Objective - Vital Signs Vital signs: Vital Signs Temp 98.2 F 03/24/25 09:12 Pulse 107 H 03/24/25 09:12 Resp 16 03/24/25 09:12 BP 115/69 03/24/25 09:12 Pulse Ox 96 03/24/25 09:12 FiO2 Intake & Output 03/23/25 03/24/25 03/24/25 18:59 06:59 18:59 Intake Total 241.167 224.417 Balance 241.167 224.417 Weight 98 kg Intake: Intake, IV Titration 21.167 114.417 Amount Diltiazem 125 mg In 21.167 114.417 Dextrose 5% in Water 100 ml @ 5 MG/HR 5 mls/hr IV .Q24H [facility] Rx#:[id number] Oral 220 110 Other: Voiding Method Toilet Toilet Toilet # Voids 2 1 # Bowel Movements 1 - Exam GENERAL:Patient is well-developed and well-nourished. Patient is nontoxic and well-hydrated and is in mild distress. ENT:Neck is soft and supple. No significant lymphadenopathy is noted. Oropharynx is clear. Moist mucous membranes. Neck has full range of motion without eliciting any pain. EYES:The sclera were anicteric and conjunctiva were pink and moist. Extraocular movements were intact and pupils were equal round and reactive to light. Eye lids were unremarkable. PULMONARY:Unlabored respirations. Good breath sounds bilaterally. No audible rales rhonchi or wheezing was noted. CARDIOVASCULAR:Patient has an irregular heartbeat at 120 bpm ABDOMEN:Soft and nontender with normal bowel sounds. No palpable organomegaly was noted. There is no palpable pulsatile mass. SKIN:Skin is clear with no lesions or rashes and otherwise unremarkable. NEUROLOGIC:Patient is alert and oriented x3. Cranial nerves II through XII are grossly intact. Motor and sensory are also intact. Normal speech, volume and content. Symmetrical smile. MUSCULOSKELETAL:Normal extremities with adequate strength and full range of motion. No lower extremity swelling or edema. No calf tenderness. LYMPHATICS:No significant lymphadenopathy is noted PSYCHIATRIC:Normal psychiatric evaluation. - Labs CBC & Chem 7: 03/22/25 15:13 03/23/25 05:50 Labs: Abnormal Lab Results - Last 24 Hours (Table) 03/23/25 Range/Units 05:50 HDL Cholesterol 37.20 L (40.00-60.00) mg/dL Assessment and Plan Assessment: Paroxysmal atrial fibrillation with RVR; patient was placed on IV Cardizem infusion -Patient is currently on metoprolol tartrate 100 mg twice daily; Eliquis 5 mg daily -Patient has been evaluated by cardiology; recommending to increase Eliquis to 5 mg twice daily; given softer blood pressures patient has been placed on metoprolol 25 mg twice daily; add amiodarone 400 mg twice daily -2D echo is ordered -Cardiology on board; recommending to wean off Cardizem drip as able CAD with previous CABG x 2 with most recent in 2014 x 5 vessels -Remains on Eliquis, Lipitor, Zetia and metoprolol Hypertension; patient takes lisinoprilhydrochlorothiazide 25-12.5 mg daily which was not placed on hold given softer blood pressures -Metoprolol has been changed to 25 mg twice daily Hyperlipidemia; Lipitor 80 mg along with Zetia 10 mg daily Depression; Zoloft 50 mg nightly DVT prophylaxis; SCD/Eliquis CODE STATUS; full code
[2025-03-24] MEDS: ATORVASTATIN 40 MG TAB PO SCH (20:08)
[2025-03-24] MEDS: METOPROLOL TARTRATE 50 MG TAB PO SCH (20:08)
--- NOTE | 2025-03-25 07:51 | P.PN ---
Subjective HISTORY OF PRESENT ILLNESS: This is a 74-year-old male with a past medical history significant for atrial fibrillation, CAD with previous CABG and redo CABG with most recent in 2013 x 5 vessels, prostate cancer, hypertension, hyperlipidemia and obesity. Patient follows in the office with Dr. Lui. We have been asked to see the patient in consultation for atrial fibrillation. Patient examined at the bedside. Patient states that he has been having issues with his a-fib acting up for the past 2 months. He states that he was taking hormones and steroids and was concerned that was exacerbating his atrial fibrillation. He does report feeling short of breath. He also reports having some dizziness and palpitations. Patient was found to be in A-fib with RVR. He was started on IV Cardizem which is infusing at 5 mg an hour. He remains in atrial fibrillation with a heart rate around 120 at the time of examination. DIAGNOSTICS: - EKG reveals A-fib with RVR. - Chest xray mild cardiomegaly. Post CABG changes. No definite acute process.. - Laboratory data: Troponin negative x 3. TSH 1.980 - Current home cardiac medications include Zetia 10 mg daily, Lipitor 80 mg and 40 mg every 2 days alternating, lisinoprilhydrochlorothiazide 20-12.5 mg daily, Eliquis 5 mg at night, metoprolol tartrate 100 mg twice daily. - Most recent echocardiogram obtained in May 2023 revealed ejection fraction 50 to 55%, borderline LVH, RVSP 35 mmHg - Patient underwent Lexiscan stress test in April 2021 revealing fixed defect inferior wall probably due to soft tissue attenuation. 03/24/2025 Patient examined this morning at the bedside. Patient denies chest pain or pressure. He denies shortness of breath. He denies any palpitations. He remains in atrial fibrillation with a heart rate [place] [address]. Echocardiogram completed revealing ejection fraction 55 to 60%, mild MR, mild TR. 03/25 Patient seen and examined. Patient states overall he feels much better than when he came in. No further significant lightheadedness. Walking the halls and only some mild dyspnea however predominantly improved. Denies any chest pain or pressure. Heart rates in the 5611-8291 range. He has been on the metoprolol 50 twice a day as well as amiodarone. PHYSICAL EXAM: VITAL SIGNS: Reviewed. GENERAL: Well-developed in no acute distress. HEENT: Head is normocephalic. Pupils are equal, round. Sclerae anicteric. Mucous membranes of the mouth are moist. Neck supple. No JVD or thyromegaly LUNGS: Respirations even and unlabored. Lungs essentially clear to auscultation bilaterally. HEART: Irregular rate and rhythm. S1 and S2 heard. ABDOMEN: Soft. Nondistended. Nontender. EXTREMITIES: Normal range of motion. No clubbing or cyanosis. Peripheral pulses intact. No lower extremity edema NEUROLOGIC: Awake and alert. Oriented x 3. ASSESSMENT: Paroxysmal atrial fibrillation CAD with previous CABG x 2 with most recent in 2014 x 5 vessels Hypertension Hyperlipidemia Prostate cancer Obesity: BMI 31.9 PLAN: Continue Eliquis 5 mg twice a day continue oral amiodarone 400 mg twice a day for 6 more days and then taper to 200 mg twice a day for 1 week and then 200 mg daily Increase metoprolol tartrate back to his 100 mg twice a day. If tolerating the increased dose in a few hours patient may be discharged home from cardiology standpoint. Continue to hold lisinoprilhydrochlorothiazide secondary to soft blood pressures upon admission Likely discharge home later this morning and outpatient cardioversion versus ablation. Objective - Vital Signs Vital signs: Vital Signs Temp 96.1 F L 03/25/25 04:00 Pulse 92 03/25/25 04:00 Resp 16 03/25/25 04:00 BP 111/69 03/25/25 04:00 Pulse Ox 98 03/24/25 23:31 FiO2 Intake & Output 03/24/25 03/25/25 03/25/25 18:59 06:59 18:59 Intake Total 588.834 260 Balance 588.834 260 Weight 98.2 kg Intake: IV 10 20 Invasive Line 1 10 20 Intake, IV Titration 118.834 Amount Diltiazem 125 mg In 118.834 Dextrose 5% in Water 100 ml @ 5 MG/HR 5 mls/hr IV .Q24H [facility] Rx#:[id number] Oral 460 240 Other: Voiding Method Toilet Toilet # Voids 1 1 - Labs CBC & Chem 7: 03/22/25 15:13 03/23/25 05:50
[2025-03-25] MEDS: METOPROLOL TARTRATE 50 MG TAB PO SCH (08:38)
[2025-03-25 11:49] VITALS: RESP 16
[2025-03-25 16:19] VITALS: BP 135/87; PULSE 104; TEMP 97.5
[2025-03-25] MEDS: ATORVASTATIN 80 MG TAB PO SCH (19:10)
--- NOTE | 2025-03-26 00:19 | P.DS ---
Providers Date of admission: 03/22/25 18:45 Attending physician: José Miguel Hart Consults: 03/22/25 17:54 Consult Physician Urgent Consulting Provider: [facility] Consult Reason/Comments: A-fib with rapid ventricular response Do you want consulting provider notified?: Yes Primary care physician: Karlo Merlos MD Hospital Course: Diagnoses: Paroxysmal atrial fibrillation with RVR Coronary artery disease status post CABG Hypertension Dyslipidemia Depression Hospital course 74-year-old male, history of hypertension, hyperlipidemia, CAD, atrial fibrillation, osteoarthritis, who presents to the emergency department stating he has a history of atrial fibrillation. Patient came in today because he felt like his heart was racing again. Patient states he was at [facility] a couple of days ago and was discharged home but since then his heart rate has been back up to 120 beats to 130 beats bpm. Patient denies any chest pain. Patient does state he is somewhat dizzy and is mildly short of breath. Patient is on Eliquis. Patient evaluated by coater hand for A-fib with RVR. Patient was placed on amiodarone 400 mg and metoprolol 50 mg. Patient heart rate is controlled. Patient's symptoms improved. Patient denies chest pain or dyspnea no other new complaints. Patient eager to go home today. Patient was cleared for discharge by coater hand. Discussed case with Dr. Wilkinson and he cleared her for discharge. Patient informed to discontinue the hydrochlorothiazide upon discharge for borderline hypotension. Patient confirms he has Eliquis at home. Problems and management plan were discussed with the patient and he verbalized understanding and acceptance Patient was found stable and can be discharged home in guarded prognosis however he needs follow-up as an outpatient. Patient was instructed to follow up with PCP within one week and patient agrees. Patient told me he has an appointment already with his PCP this coming Tuesday Patient was instructed to follow-up with his coater hand Dr. Kiran in 1 week and he agrees Physical exam Gen: patient is a AAOx3, no distress CVS: S1-S2, RRR, no murmur Lungs: B/L CTA, no wheezing Abdomen: soft, no distention, no tenderness, positive bowel sounds Extremity: no leg edema or induration Time spent more than 35 minutes Plan - Discharge Summary New Discharge Prescriptions: New RX: Amiodarone [Cordarone] 400 mg PO DIRECTED #55 tab Continue RX: Atorvastatin [Lipitor] 40 mg PO Q2D@1929 RX: Atorvastatin [Lipitor] 80 mg PO Q2D@1929 RX: Metoprolol Tartrate [Lopressor] 100 mg PO BID RX: Sertraline [Zoloft] 50 mg PO HS@1929 RX: Ezetimibe [Zetia] 10 mg PO DAILY RX: Apixaban [Eliquis] 5 mg PO HS@193 Discontinued Lisinopril-Hctz 20-12.5 mg [Zestoretic 20-12.5] 1 tab PO DAILY Discharge Medication List RX: Apixaban [Eliquis] 5 mg PO HS@192903/22/25 [History] RX: Atorvastatin [Lipitor] 40 mg PO Q2D@192903/22/25 [History] RX: Atorvastatin [Lipitor] 80 mg PO Q2D@192903/22/25 [History] RX: Ezetimibe [Zetia] 10 mg PO DAILY 03/22/25 [History] RX: Metoprolol Tartrate [Lopressor] 100 mg PO BID 03/22/25 [History] RX: Sertraline [Zoloft] 50 mg PO HS@192903/22/25 [History] RX: Amiodarone [Cordarone] 400 mg PO DIRECTED #55 tab 03/25/25 [Rx] Follow up Appointment(s)/Referral(s): Pato Lui MD [STAFF PHYSICIAN] - 1 Week (Office closed at time of discharge. Please call for appointment.) Karlo Merlos MD [Primary Care Provider] - 1-2 days (you have appointment this contuesday on 03/29/25, please call to confirm appointment time and date , otherwise you will need a new appointmnet in one week please ) Activity/Diet/Wound Care/Special Instructions: heart healthy diet activity is restricted till you see your doctor Discharge Disposition: HOME SELF-CARE
== END 2025-03-25 19:14 | disposition home or self-care (01) | DRG 310 ==
LOC: EC 14:13 → 3SCARD 18:45
PROVIDERS: ADMIT Hospitalist; ATTEND Hospitalist
DX: I48.0 Paroxysmal atrial fibrillation (principal); Z95.1 Presence of aortocoronary bypass graft; C61 Malignant neoplasm of prostate; I10 Essential (primary) hypertension; Z68.31 Body mass index [BMI] 31.0-31.9, adult; F32.A Depression, unspecified; I48.92 Unspecified atrial flutter; E66.9 Obesity, unspecified; E78.5 Hyperlipidemia, unspecified; I25.10 Atherosclerotic heart disease of native coronary artery without angina pectoris; I25.2 Old myocardial infarction; Z79.01 Long term (current) use of anticoagulants; Z79.899 Other long term (current) drug therapy
CPT/HCPCS: 36415; 71046; 80048; 80053; 80061; 83735; 84443; 84484; 85025; 85610; 85730; 93005; 93306; 96360; 96361; 99291